=== PATIENT | male | born 1955 | race Two or more races ===

== ENCOUNTER 2021-05-05 08:38 | Day surgery (SDC) | payer OTHER | END 2021-05-05 13:20 | disposition home or self-care (01) | LOC: AMB-ENDOS 08:38 | PROVIDERS: ATTEND Surgery | DX: K62.89 Other specified diseases of anus and rectum (principal); K64.8 Other hemorrhoids; Z20.822 Contact with and (suspected) exposure to COVID-19 ==

== ENCOUNTER 2021-06-04 08:56 | Day surgery (SDC) | payer OTHER ==
[~2021-06-04 08:56] MED LIST: ULTRACET PO
== END 2021-06-04 10:00 | disposition home or self-care (01) ==
LOC: CIR.AMB 08:56
PROVIDERS: ATTEND Surgery
DX: C18.7 Malignant neoplasm of sigmoid colon (principal)